=== PATIENT | female | born 1980 | race Two or more races ===

== ENCOUNTER 2017-04-10 13:44 | Emergency (ER) | payer OTHER ==
[~2017-04-10] VITALS: Ht 157.5 cm; Wt 70.3 kg
--- NOTE | 2017-04-10 14:03 | NUR ---
[id number], BB SELF FOR SOB SINCE THIS AM WAS SEEN AT A HOSPITAL YESTERDAY FOR BRONCHITIS. resp is even and unlabored with nad noted. speaks in full sentences. skin is warm and dry. Awaiting md for eval.
--- NOTE | 2017-04-10 14:04 | NUR ---
Dr Joshua at [facility] for eval.
[2017-04-10] MEDS ORDERED: ALBUTEROL FS 2.5 MG/3 ML VIAL.NEB ONE (14:06)
[2017-04-10] MEDS ORDERED: IPRATROPIUM NEB FS 0.5 MG/2.5 ML AMPUL.NEB ONE (14:07)
[2017-04-10] MEDS ORDERED: predniSONE 20 MG TABLET ONE (14:07)
[2017-04-10] MEDS: predniSONE 20 MG TABLET PO ONE (14:12)
[2017-04-10] MEDS: ALBUTEROL FS 2.5 MG/3 ML VIAL.NEB CONTNEB ONE (14:20)
[2017-04-10] MEDS: IPRATROPIUM NEB FS 0.5 MG/2.5 ML AMPUL.NEB NEB ONE (14:20)
--- NOTE | 2017-04-10 14:25 | NUR ---
Breathing treatment at
--- NOTE | 2017-04-10 15:05 | NUR ---
Dr Joshua at for an update and re-eval.
[2017-04-10 15:09] VITALS: BP 134/78
--- NOTE | 2017-04-10 15:09 | NUR ---
Patient discharged to home in stable condition. Written and verbal after care instructions given. Patient verbalizes understanding of instruction.
== END 2017-04-10 15:10 | disposition home or self-care (01) ==
LOC: ER 13:46
DX: J20.9 Acute bronchitis, unspecified (principal); F41.9 Anxiety disorder, unspecified
CPT/HCPCS: 71010-TC; A4606; Z7610

== ENCOUNTER 2023-03-22 12:24 | Emergency (ER) | payer OTHER ==
[~2023-03-22] VITALS: Ht 157.5 cm; Wt 81.6 kg
--- NOTE | 2023-03-22 13:09 | NUR ---
PT ON BED WITH DAUGTHERCC KNEE PAIN RT DUE TO TRAUMA FEW DAYS AGO. EVERYTIME SHE WALKS, SHE CLAIMS SHE HEARS CRACKING SOUNDS
--- NOTE | 2023-03-22 13:11 | NUR ---
PT HAD XRAY, AWAITING FOR MD ORDERS
[2023-03-22] MEDS ORDERED: IBUP-1955 PO (14:29)
[2023-03-22 14:39] VITALS: BP 117/75
--- NOTE | 2023-03-22 14:39 | NUR ---
Patient discharged to home in stable condition, ambulating. Written and verbal after care instructions given. Patient verbalizes understanding of instruction.
== END 2023-03-22 14:40 | disposition home or self-care (01) ==
LOC: ER 12:28
DX: M25.561 Pain in right knee (principal)
CPT/HCPCS: 73564-TC

== ENCOUNTER 2023-11-24 11:43 | Emergency (ER) | payer OTHER ==
[~2023-11-24] VITALS: Ht 157.5 cm; Wt 86.2 kg
[~2023-11-24 11:43] MED LIST: IBUP-1955 PO
[2023-11-24 12:20] VITALS: BP 106/67; TEMP 97.8; O2SAT 97
== END 2023-11-24 13:35 | disposition left against medical advice (07) ==
LOC: ER 11:50
DX: R09.81 Nasal congestion (principal); Z53.21 Procedure and treatment not carried out due to patient leaving prior to being seen by health care provider

== ENCOUNTER → 2025-10-21 | Emergency (ER) | payer OTHER ==
[~2025-10-21] VITALS: Ht 157.5 cm; Wt 97.5 kg
[~2025-10-21] MED LIST changes: +ACET325C7 PO; +LIDO30AD10 TP; +METH-649 PO
[2025-10-21 17:05] VITALS: BP 137/85; TEMP 97.7; O2SAT 100
== END | disposition home or self-care (01) ==
LOC: ER 15:41
DX: R07.81 Pleurodynia (principal); F31.9 Bipolar disorder, unspecified; Z79.1 Long term (current) use of non-steroidal anti-inflammatories (NSAID)
CPT/HCPCS: 71045-TC